=== PATIENT | male | born 1955 | race Hispanic/Latino ===

== ENCOUNTER 2021-04-11 11:08 | Outpatient (CLI) | payer MEDICARE ==
--- NOTE | 2021-04-11 12:10 | XRay Report ---
BILATERAL KNEE 2 VIEW(S) INDICATION / CLINICAL INFORMATION: Bilateral knee pain COMPARISON: None available. FINDINGS: BONES / JOINT(S): No acute fracture or dislocation in either knee. 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 Mild degenerative enthesopathic change at the right tibial tuberosity. SOFT TISSUES: No significant abnormality. ADDITIONAL FINDINGS: None. Signer Name: Karthikeyan Clark MD Signed: 04/11/2021 12:03 PM Workstation Name: [facility]
== END 2021-04-11 11:09 | disposition home or self-care (01) ==
LOC: XRAY 11:08
PROVIDERS: ATTEND Orthopaedic Surgery
DX: M17.0 Bilateral primary osteoarthritis of knee (principal)